=== PATIENT | male | born 1950 ===

== ENCOUNTER 2022-05-22 16:55 | Inpatient (IN) ==
[2022-05-22] MEDS: HEPARIN DRIP 25,000 UNITS/500 ML PREMIX IV SCH (17:15)
[2022-05-22] MEDS ORDERED: NITROGLYCERIN DRIP 50 MG/250 ML BOTTLE IV PRN (17:24)
[2022-05-22] MEDS ORDERED: carvediloL 3.125 MG TABLET PO STA (17:32)
[2022-05-22 17:47] LABS: Basophils % 0.4 % (0.0-0.8); Eosinophils % 0.4 % (0.00-10.9); Hematocrit 43.7 VOL% (42.0-52.0); Hemoglobin 15.4 GM/DL (14.0-18.0); Immature Granulocytes % 0.5 %; Immature Granulocytes Absolute 0.05 #; Lymphocytes # 1.4 10*3/uL (1.4-4.0); Mean Corpuscular HGB Conc 35.2 GM/DL (32-36); Mean Corpuscular Volume 85.2 FL (87-102); Mean Platelet Volume 9.9 FL (9.6-12.0); Monocytes # 0.5 10*3/uL (0.11-0.8); Monocytes % 5.7 % (1.7-12.7); Platelet Count 312 T/CUMM (130-400); Red Blood Count 5.13 MC/CUMM (3.8-5.5); Red Cell Distribution Width 12.8 % (9.3-17.3); White Blood Count 9.5 T/CUMM (4-12)
[2022-05-22] MEDS ORDERED: carvediloL 25 MG TABLET PO STA (17:56)
[2022-05-22 17:59] LABS: PT Patient Result 10.6 SECS (10.1-12.1)
[2022-05-22 18:04] LABS: Albumin 3.9 G/DL (3.4-5.0); Bilirubin,Total 0.4 MG/DL (0.20-1.00); Calcium 8.9 MG/DL (8.5-10.1); Osmolality,Calculated 277.2 MOS/KG (273-304); Total Protein 7.9 G/DL (6.4-8.2)
[2022-05-22] MEDS ORDERED: SIMETHICONE CHEW 125 MG TABLET PO PRN (18:18)
[2022-05-22] MEDS ORDERED: GLUCAGON 1 MG VIAL IM PRN (18:18)
[2022-05-22] MEDS ORDERED: NICOTINE 21 MG/24 HR PATCH TRANSDERM PRN (18:18)
[2022-05-22] MEDS ORDERED: DOCUSATE SODIUM 100 MG CAPSULE PO PRN (18:18)
[2022-05-22] MEDS ORDERED: ALBUTEROL/IPRATROPIUM 3 ML NEB RESP TX PRN (18:18)
[2022-05-22] MEDS ORDERED: ALBUTEROL 2.5 MG/3 ML NEB RESP TX PRN (18:18)
[2022-05-22] MEDS ORDERED: ONDANSETRON 4 MG/2 ML VIAL IV PRN (18:18)
[2022-05-22] MEDS ORDERED: ACETAMINOPHEN 325 MG TABLET PO PRN (18:18)
[2022-05-22] MEDS ORDERED: LACTULOSE 20 GM/30 ML UDCUP PO PRN (18:18)
[2022-05-22] MEDS ORDERED: DEXTROSE 10% 250 ML BAG IV PRN ×2 (18:30→19:00)
[2022-05-22] MEDS: PANTOPRAZOLE 40 MG VIAL IV SCH (18:40)
[2022-05-22 18:50] LABS: Partial Thromboplastin Time 51.8 SECS (23.7-32.9)
[2022-05-22 18:57] LABS: PT Patient Result 10.6 SECS (10.1-12.1)
[2022-05-22] MEDS: INSULIN LISPRO 100 UNIT/ML SUBCUT SCH (21:07)
[2022-05-23 02:51] LABS: Basophils % 0.2 % (0.0-0.8); Hematocrit 38.9 VOL% (42.0-52.0); Hemoglobin 13.4 GM/DL (14.0-18.0); Immature Granulocytes % 0.4 %; Immature Granulocytes Absolute 0.04 #; Lymphocytes # 1.6 10*3/uL (1.4-4.0); Lymphocytes % 15.2 % (21.2-54.2); Mean Corpuscular HGB Conc 34.4 GM/DL (32-36); Mean Corpuscular Volume 86.4 FL (87-102); Mean Platelet Volume 9.5 FL (9.6-12.0); Monocytes # 0.6 10*3/uL (0.11-0.8); Neutrophils % 78.2 % (38.7-73.9); Platelet Count 284 T/CUMM (130-400); White Blood Count 10.3 T/CUMM (4-12)
[2022-05-23 03:22] LABS: Albumin 3.6 G/DL (3.4-5.0); Bilirubin,Total 0.6 MG/DL (0.20-1.00); Calcium 8.4 MG/DL (8.5-10.1); Osmolality,Calculated 280.8 MOS/KG (273-304); Potassium 4.2 MMOL/L (3.5-5.1); Risk Ratio 4.59; Total Protein 6.6 G/DL (6.4-8.2); VLDL Cholesterol 16.2 MG/DL
[2022-05-23] MEDS: INSULIN LISPRO 100 UNIT/ML SUBCUT SCH ×4 (07:27→21:29)
[2022-05-23] MEDS: ASPIRIN CHEW 81 MG TABLET PO SCH ×2 (10:10→11:22)
[2022-05-23] MEDS ORDERED: LOSARTAN 25 MG TABLET PO SCH (11:07)
[2022-05-23] MEDS: EZETIMIBE 10 MG TABLET PO SCH (11:23)
[2022-05-23] MEDS: NITROGLYCERIN 2% OINT 1 INCH/GM PACK TOP SCH ×3 (11:23→22:50)
[2022-05-23] MEDS ORDERED: hydrALAZINE 20 MG/1 ML VIAL IV PRN (11:36)
[2022-05-23] MEDS: amLODIPine 5 MG TABLET PO SCH (11:36)
[2022-05-23] MEDS ORDERED: POTASSIUM CHLORIDE RIDER 10 MEQ/100 ML PREMIX IV PRN (12:35)
[2022-05-23] MEDS ORDERED: MAGNESIUM SULF RIDER 2 GM/50 ML PREMIX IV PRN (12:35)
[2022-05-23] MEDS ORDERED: diphenhydrAMINE CAP 50 MG CAPSULE PO ONE (13:00)
[2022-05-23] MEDS ORDERED: DIAZEPAM 5 MG TABLET PO ONE (13:00)
[2022-05-23] MEDS: SODIUM CHLORIDE 0.9% 1,000 ML IV SCH ×2 (13:03→17:30)
[2022-05-23] MEDS ORDERED: HEPARIN/NACL 0.9% 2 UNITS/ML 2,000 UNIT/1,000 ML BAG IV ONE (13:20)
[2022-05-23] MEDS ORDERED: fentaNYL 100 MCG/2 ML VIAL ONE (13:26)
[2022-05-23] MEDS ORDERED: MIDAZOLAM 2 MG/2 ML VIAL ONE (13:26)
[2022-05-23] MEDS: HEPARIN DRIP 25,000 UNITS/500 ML PREMIX IV SCH (14:30)
[2022-05-23] MEDS: PANTOPRAZOLE 40 MG VIAL IV SCH ×2 (17:27→18:21)
[2022-05-23] MEDS ORDERED: MORPHINE 2 MG/1 ML SYRINGE IV PRN (17:58)
[2022-05-24] MEDS: SODIUM CHLORIDE 0.9% 1,000 ML IV SCH (01:17)
[2022-05-24 05:08] LABS: Basophils % 0.2 % (0.0-0.8); Eosinophils # 0.1 10*3/uL (0.0-0.87); Eosinophils % 0.7 % (0.00-10.9); Hematocrit 39.6 VOL% (42.0-52.0); Hemoglobin 13.4 GM/DL (14.0-18.0); Immature Granulocytes % 0.6 %; Immature Granulocytes Absolute 0.05 #; Lymphocytes # 1.9 10*3/uL (1.4-4.0); Lymphocytes % 21.3 % (21.2-54.2); Mean Corpuscular HGB Conc 33.8 GM/DL (32-36); Mean Corpuscular Volume 88.4 FL (87-102); Mean Platelet Volume 9.6 FL (9.6-12.0); Monocytes # 0.8 10*3/uL (0.11-0.8); Monocytes % 9.3 % (1.7-12.7); Neutrophils % 67.9 % (38.7-73.9); Platelet Count 254 T/CUMM (130-400); Red Blood Count 4.48 MC/CUMM (3.8-5.5); Red Cell Distribution Width 13.5 % (9.3-17.3)
[2022-05-24 05:32] LABS: Alanine Aminotransferase 22 U/L (16-61); Albumin 2.9 G/DL (3.4-5.0); Alkaline Phosphatase 90 U/L (45-117); Aspartate Amino Transferase 45 U/L (0-37); Bilirubin,Total < 0.39 MG/DL (0.20-1.00); Blood Urea Nitrogen 17 MG/DL (7-18); Calcium 8.1 MG/DL (8.5-10.1); Carbon Dioxide 23 MMOL/L (21-32); Chloride 109 MMOL/L (98-107); Glucose 201 MG/DL (74-106); Osmolality,Calculated 282.7 MOS/KG (273-304); Potassium 3.9 MMOL/L (3.5-5.1); Sodium 138 MMOL/L (136-145)
[2022-05-24] MEDS: NITROGLYCERIN 2% OINT 1 INCH/GM PACK TOP SCH (06:13)
[2022-05-24] MEDS: INSULIN LISPRO 100 UNIT/ML SUBCUT SCH ×2 (07:37→11:28)
[2022-05-24] MEDS ORDERED: NITROGLYCERIN DRIP 50 MG/250 ML BOTTLE IV SCH (08:30)
[2022-05-24] MEDS: amLODIPine 5 MG TABLET PO SCH (08:52)
[2022-05-24] MEDS: EZETIMIBE 10 MG TABLET PO SCH (08:52)
[2022-05-24] MEDS: ASPIRIN CHEW 81 MG TABLET PO SCH (08:52)
[2022-05-24] MEDS ORDERED: METOPROLOL TARTRATE 25 MG TABLET PO SCH (09:00)
[2022-05-24] MEDS ORDERED: NITROGLYCERIN 2% OINT 1 INCH/GM PACK TOP SCH (11:00)
[2022-05-24] MEDS: HEPARIN DRIP 25,000 UNITS/500 ML PREMIX IV SCH ×2 (11:25→15:58)
[2022-05-24] MEDS ORDERED: GLUCAGON 1 MG VIAL IM PRN (12:20)
[2022-05-24] MEDS ORDERED: DEXTROSE 50% 25 GM/50 ML VIAL IV PRN (12:20)
[2022-05-24 17:53] VITALS: BP 135/76
== END 2022-05-24 16:06 | disposition hospice, home (50) | DRG 281 ==
LOC: N.ED 16:55 → N.CC 18:18 → N.TELES 05-24 12:27
PROVIDERS: ADMIT Family Medicine; ATTEND Family Medicine